=== PATIENT | female | born 1940 | race Caucasian/White ===

== ENCOUNTER 2018-02-23 12:34 | Emergency (ER) | payer MEDICARE, OTHER ==
[~2018-02-23] VITALS: Ht 165.1 cm; Wt 67.0 kg
[2018-02-23] MEDS ORDERED: MECLIZINE CHEWABLE 25 MG TAB ONE (12:50)
[2018-02-23] MEDS ORDERED: MECLIZINE CHEWABLE 25 MG TAB PO ONE (13:00)
[2018-02-23 13:03] LABS: BASOPHILS # (AUTO) 0.04 x10^3/uL (0-0.1); BASOPHILS % (AUTO) 1 % (0-1); EOSINOPHILS # (AUTO) 0.16 x10^3/uL (0-0.4); EOSINOPHILS % (AUTO) 2 % (1-7); LYMPHOCYTES # (AUTO) 1.53 x10^3/uL (1-3.4); LYMPHOCYTES % (AUTO) 22 % (22-44); MD NO; MEAN CORPUSCULAR HEMOGLOBIN 30.5 pg (27.0-34.8); MEAN CORPUSCULAR HGB CONC 33.8 g/dL (32.4-35.8); MEAN PLATELET VOLUME 7.5 fL (7.4-10.4); MONOCYTES # (AUTO) 0.34 x10^3/uL (0.2-0.8); MONOCYTES % (AUTO) 5 % (2-9); NEUTROPHILS # (AUTO) 4.98 x10^3/uL (1.8-6.8); NEUTROPHILS % (AUTO) 71 % (42-75); PLATELET COUNT 279 x10^3/uL (130-400); RED BLOOD COUNT 4.38 x10^6/uL (3.82-5.3); RED CELL DISTRIBUTION WIDTH 13.5 % (9.6-15.2)
[2018-02-23 13:13] LABS: ALBUMIN 3.9 g/dL (3.4-5.0); CALCIUM 9.9 mg/dL (8.5-10.1); CREATININE 0.72 mg/dL (0.55-1.02)
[2018-02-23 13:17] LABS: TROPONIN I 0.032 ng/mL (0.000-0.045)
[2018-02-23 13:22] LABS: ANION GAP 8 mmol/L (5-15); CHLORIDE 105 mmol/L (98-107)
[2018-02-23 14:06] VITALS: BP 142/61
== END 2018-02-23 14:14 | disposition home or self-care (01) ==
LOC: ED 13:04
DX: H81.13 Benign paroxysmal vertigo, bilateral (principal); I10 Essential (primary) hypertension; E03.9 Hypothyroidism, unspecified; Z87.891 Personal history of nicotine dependence
CPT/HCPCS: 36415; 71045; 80048; 82040; 84484; 85025; 93005; 99285

== ENCOUNTER 2018-09-16 03:29 | Inpatient (IN) | payer MEDICARE, OTHER ==
[~2018-09-16] VITALS: Ht 165.1 cm; Wt 70.7 kg
--- NOTE | 2018-09-16 03:45 | NUR ---
PT STATES SHE WOKE UP AT 2AM, DIAPHORETIC AND TRIED TO CHECK HER BP AND HER MACHINE WOULD NOT REGISTER A BP. PT ALSO STATES THAT SHE HAD A LITTLE CHEST AND BACK PAIN BEFORE SHE WENT TO BED AT 2200. 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 PLACED ON FOOD SAFETY COORDINATOR, AT BEDSIDE, CALL LIGHT IN REACH
[2018-09-16] MEDS ORDERED: NITROGLYCERIN SINGLE TAB 0.4 MG SL PRN (04:00)
[2018-09-16] MEDS ORDERED: SODIUM CHLORIDE FLUSH 10ML SYR IVF ONE (04:00)
[2018-09-16] MEDS ORDERED: NITROGLYCERIN SINGLE TAB 0.4 MG SL ONE (04:01)
[2018-09-16] MEDS ORDERED: BRIN10DR EACHEYE (04:07)
[2018-09-16] MEDS ORDERED: BRIM5DRO2 EACHEYE (04:08)
[2018-09-16] MEDS ORDERED: LATA2.5D3 EACHEYE (04:09)
[2018-09-16] MEDS ORDERED: DOXA1TAB2 PO (04:10)
[2018-09-16] MEDS ORDERED: ATOR-2 PO (04:10)
[2018-09-16] MEDS ORDERED: LEVO75TA5 PO (04:11)
[2018-09-16] MEDS ORDERED: LOSA100T14 PO (04:12)
[2018-09-16] MEDS ORDERED: METO-264 PO (04:13)
[2018-09-16] MEDS ORDERED: OMEP-110 PO (04:14)
[2018-09-16] MEDS ORDERED: NITR0.4T28 SL (04:15)
[2018-09-16] MEDS ORDERED: SPIR25TA5 PO (04:15)
[2018-09-16] MEDS ORDERED: NITROGLYCERIN OINT 2%, 1GM TP ONE ×2 (04:30→04:48)
[2018-09-16 04:43] LABS: BASOPHILS # (AUTO) 0.03 x10^3/uL (0-0.1); BASOPHILS % (AUTO) 1 % (0-1); EOSINOPHILS # (AUTO) 0.14 x10^3/uL (0-0.4); EOSINOPHILS % (AUTO) 3 % (1-7); LYMPHOCYTES % (AUTO) 34 % (22-44); MD NO; MEAN CORPUSCULAR HEMOGLOBIN 29.8 pg (27.0-34.8); MEAN CORPUSCULAR HGB CONC 32.9 g/dL (32.4-35.8); MEAN CORPUSCULAR VOLUME 90.8 fL (80-100); MEAN PLATELET VOLUME 7.2 fL (7.4-10.4); MONOCYTES # (AUTO) 0.37 x10^3/uL (0.2-0.8); MONOCYTES % (AUTO) 7 % (2-9); NEUTROPHILS # (AUTO) 3.08 x10^3/uL (1.8-6.8); NEUTROPHILS % (AUTO) 56 % (42-75); PLATELET COUNT 288 x10^3/uL (130-400); RED BLOOD COUNT 3.79 x10^6/uL (3.82-5.3); RED CELL DISTRIBUTION WIDTH 13.3 % (9.6-15.2)
--- NOTE | 2018-09-16 04:51 | NUR ---
NOTIFIED PT SYSTOLIC IN 120'S, HOLDING NITROPASTE FOR NOW
[2018-09-16 04:52] LABS: INTERNATIONAL NORMALIZED RATIO 1.06 (0.93-1.1); PROTHROMBIN TIME 11.1 Seconds (9.6-11.5)
[2018-09-16 04:53] LABS: ALANINE AMINOTRANSFERASE 25 U/L (12-78); ALBUMIN 3.6 g/dL (3.4-5.0); ANION GAP 5 mmol/L (5-15); CALCIUM 9.6 mg/dL (8.5-10.1); CHLORIDE 113 mmol/L (98-107)
[2018-09-16 04:58] LABS: ALKALINE PHOSPHATASE 53 U/L (45-117); BILIRUBIN,TOTAL 0.7 mg/dL (0.2-1.0); CREATININE 0.87 mg/dL (0.55-1.02); TOTAL PROTEIN 6.5 g/dL (6.4-8.2); TROPONIN I 0.037 ng/mL (0.000-0.045)
--- NOTE | 2018-09-16 05:32 | NUR ---
PT SYSTOLIC IN 170'S NOW, NITROPASTE APPLIED, NOTIFIED
--- NOTE | 2018-09-16 06:38 | NUR ---
PT AMBULATED TO BATHROOM WITH STEADY GAIT
--- NOTE | 2018-09-16 09:22 | NUR ---
ASSUMED CARE OF PT, DISCUSSED WITH PT PLAN OF CARE, ORDERED MEAL TRAY. PT COMFORTABLE NO COMPLAINTS
--- NOTE | 2018-09-16 10:35 | NUR ---
UP TO BR, PLACED IN HOSPITAL BED. NO CHANGES
--- NOTE | 2018-09-16 11:29 | NUR ---
PT GIVEN MEAL TRAY RESTING.
[2018-09-16] MEDS: SODIUM CHLORIDE 0.9% 1,000 ML IV SCH (13:45)
[2018-09-16] MEDS ORDERED: ACETAMINOPHEN 325 MG TABLET PO PRN (14:00)
[2018-09-16] MEDS ORDERED: hydrALAzine 20 MG/ML, 1ML IVPush PRN (14:00)
[2018-09-16] MEDS ORDERED: ONDANSETRON ODT 4 MG PO PRN (14:00)
[2018-09-16] MEDS ORDERED: ONDANSETRON 2MG/ML, 2ML IVPush PRN (14:00)
[2018-09-16] MEDS ORDERED: ENOXAPARIN 40 MG/0.4 ML ONE (14:07)
[2018-09-16 14:17] LABS: TROPONIN I 0.048 ng/mL (0.000-0.045)
[2018-09-16] MEDS: ENOXAPARIN 40 MG/0.4 ML SQ SCH (14:23)
[2018-09-16] MEDS: BRIMONIDINE TART. OPHTH 0.2%, 5ML OP SCH (15:37)
[2018-09-16] MEDS: METOPROLOL SUCCINATE 50 MG TAB.ER.24H PO SCH (15:39)
--- NOTE | 2018-09-16 15:47 | NUR ---
INPATIENT MEDS GIVEN. PT RESTING COMFORTABLY
[2018-09-16 20:06] LABS: TROPONIN I 0.044 ng/mL (0.000-0.045)
[2018-09-16] MEDS ORDERED: ATORVASTATIN 20 MG TABLET PO SCH (21:00)
[2018-09-16] MEDS ORDERED: LOSARTAN 50MG TABLET PO SCH (21:00)
[2018-09-16] MEDS ORDERED: LATANOPROST OPHTH 0.005%, 2.5ML EACHEYE SCH (21:00)
[2018-09-16] MEDS ORDERED: (Brimonidine Tartrate/Timolol (Combigan Eye Drops) 1 DROP) EACHEYE SCH (21:00)
[2018-09-16] MEDS ORDERED: DOXAZOSIN 1MG TABLET PO SCH (21:00)
[2018-09-16] MEDS ORDERED: BRIMONIDINE TART. OPHTH 0.2%, 5ML EACHEYE SCH (21:30)
[2018-09-16] MEDS: TIMOLOL OPHTH 0.5%, 5ML OP SCH (21:46)
[2018-09-16] MEDS: OMEPRAZOLE 20 MG CAPSULE.DR PO SCH (23:29)
[2018-09-16 23:37] VITALS: BP 139/67
[2018-09-17 01:03] VITALS: BP 164/74
[2018-09-17 05:50] LABS: BASOPHILS # (AUTO) 0.03 x10^3/uL (0-0.1); BASOPHILS % (AUTO) 1 % (0-1); EOSINOPHILS # (AUTO) 0.14 x10^3/uL (0-0.4); EOSINOPHILS % (AUTO) 2 % (1-7); LYMPHOCYTES # (AUTO) 2.04 x10^3/uL (1-3.4); LYMPHOCYTES % (AUTO) 35 % (22-44); MD NO; MEAN CORPUSCULAR HGB CONC 34.8 g/dL (32.4-35.8); MEAN CORPUSCULAR VOLUME 89.1 fL (80-100); MEAN PLATELET VOLUME 7.1 fL (7.4-10.4); MONOCYTES # (AUTO) 0.46 x10^3/uL (0.2-0.8); MONOCYTES % (AUTO) 8 % (2-9); NEUTROPHILS # (AUTO) 3.16 x10^3/uL (1.8-6.8); NEUTROPHILS % (AUTO) 54 % (42-75); PLATELET COUNT 286 x10^3/uL (130-400); RED BLOOD COUNT 3.61 x10^6/uL (3.82-5.3); RED CELL DISTRIBUTION WIDTH 13.5 % (9.6-15.2)
[2018-09-17] MEDS ORDERED: ASPIRIN 81 MG TABLET EC PO SCH (06:00)
[2018-09-17 06:01] LABS: ALANINE AMINOTRANSFERASE 21 U/L (12-78); ALBUMIN 3.3 g/dL (3.4-5.0); ANION GAP 4 mmol/L (5-15); CALCIUM 9.5 mg/dL (8.5-10.1); CHLORIDE 115 mmol/L (98-107); CREATININE 0.68 mg/dL (0.55-1.02)
[2018-09-17 06:06] LABS: ALKALINE PHOSPHATASE 46 U/L (45-117); BILIRUBIN,TOTAL 0.8 mg/dL (0.2-1.0); CHOL/HDL RATIO 2.4; CHOLESTEROL, TOTAL 121 mg/dL (140-239); HDL CHOL % 41 % (28-40); HDL CHOLESTEROL (DIRECT) 50 mg/dL (40-60); LDL CHOLESTEROL,CALCULATED 50 mg/dL (54-169); TOTAL PROTEIN 6.1 g/dL (6.4-8.2); TRIGLYCERIDES 105 mg/dL (50-200); VLDL CHOLESTEROL 21 mg/dL (0-25)
[2018-09-17 06:29] VITALS: BP 154/64
[2018-09-17] MEDS: SODIUM CHLORIDE 0.9% 1,000 ML IV SCH (08:34)
[2018-09-17] MEDS: TIMOLOL OPHTH 0.5%, 5ML OP SCH (08:38)
[2018-09-17] MEDS: BRIMONIDINE TART. OPHTH 0.2%, 5ML OP SCH (08:38)
[2018-09-17] MEDS: OMEPRAZOLE 20 MG CAPSULE.DR PO SCH (08:38)
[2018-09-17] MEDS: METOPROLOL SUCCINATE 50 MG TAB.ER.24H PO SCH (08:38)
[2018-09-17 09:00] VITALS: BP_SYST 120; BP_SYST 122; BP_SYST 143; BP_DIAS 63; BP_DIAS 64; BP_DIAS 67
[2018-09-17] MEDS ORDERED: LEVOTHYROXINE 75 MCG TABLET PO SCH (09:00)
[2018-09-17] MEDS ORDERED: SPIRONOLACTONE 25 MG TABLET PO SCH (09:00)
[2018-09-17 12:57] LABS: MICROSCOPIC NOT IND
[2018-09-17 13:04] LABS: CULTURE INDICATED? NO
[2018-09-17 13:14] VITALS: BP 122/66
[2018-09-17] MEDS: ENOXAPARIN 40 MG/0.4 ML SQ SCH (14:13)
[2018-09-17 14:17] VITALS: BP_SYST 109; BP_SYST 123; BP_SYST 127; BP_DIAS 57; BP_DIAS 64; BP_DIAS 67
== END 2018-09-17 17:05 | disposition home or self-care (01) | DRG 392 ==
LOC: ED 05:00 → EDIP 05:20 → ED 05:35 → 5SO 21:06 → DCLOUNGE 09-17 16:54
PROVIDERS: ADMIT Internal Medicine; ATTEND Internal Medicine
DX: K21.9 Gastro-esophageal reflux disease without esophagitis (principal); R00.1 Bradycardia, unspecified; I34.0 Nonrheumatic mitral (valve) insufficiency; I11.9 Hypertensive heart disease without heart failure; E03.9 Hypothyroidism, unspecified; E78.5 Hyperlipidemia, unspecified; H40.9 Unspecified glaucoma; R61 Generalized hyperhidrosis; H81.10 Benign paroxysmal vertigo, unspecified ear; Z87.891 Personal history of nicotine dependence
CPT/HCPCS: 0399T; 36415; 71045; 80053; 80061; 81003; 83036; 83735; 83880; 84100; 84443; 84484; 85025; 85610; 85730; 93005; 93306; 99285; G0378; J1650; J7030